=== PATIENT | female | born 1995 | race Hispanic/Latino ===

== ENCOUNTER 2025-05-05 18:57 | Day surgery (SDC) | payer OTHER ==
[2025-05-05 19:35] VITALS: BMI 37.0
[2025-05-05] MEDS ORDERED: Acetaminophen 500 MG TAB PO PRN (19:37)
[2025-05-05] MEDS ORDERED: hydrALAZINE 20 MG/ML VIAL SLOW IVP PRN (19:37)
== END 2025-05-05 20:00 | disposition other institution (70) ==
LOC: CSHLD/OP 18:57
PROVIDERS: ATTEND Obstetrics & Gynecology
DX: O99.619 Diseases of the digestive system complicating pregnancy, unspecified trimester (principal); K08.89 Other specified disorders of teeth and supporting structures; Z3A.00 Weeks of gestation of pregnancy not specified
CPT/HCPCS: 99284

== ENCOUNTER 2025-05-05 20:01 | Emergency (ER) | payer OTHER | END 2025-05-05 20:23 | disposition home or self-care (01) | LOC: CSHERS 20:01 | DX: O99.891 Other specified diseases and conditions complicating pregnancy (principal); K08.89 Other specified disorders of teeth and supporting structures; K02.9 Dental caries, unspecified; Z3A.28 28 weeks gestation of pregnancy | CPT/HCPCS: 99282 ==

== ENCOUNTER 2025-05-11 16:39 | Day surgery (SDC) | payer OTHER ==
[2025-05-11 16:50] VITALS: BMI 37.7
[2025-05-11] MEDS ORDERED: hydrALAZINE 20 MG/ML VIAL SLOW IVP PRN (17:12)
[2025-05-11 18:45] LABS: Protein, Urine Random Quant Less than 10 mg/dL (1-14)
[2025-05-11 19:06] LABS: #Basophils Less than 0.03 10x3/uL (0.0-0.2); #Eosinophils 0.10 10x3/uL (0.0-0.5); #Monocytes 0.50 10x3/uL (0.0-1.1); #Neutrophils 6.45 10x3/uL (1.5-8.4); %Basophils 0.2 % (0.0-2.0); %Eosinophils 1.1 % (0.0-6.0); %Lymphocytes 21.9 % (18.0-47.0); %Monocytes 5.5 % (0.0-10.0); %Neutrophils 70.5 % (40.0-75.0); Hematocrit 32.7 % (34.9-44.5); Hemoglobin 11.0 g/dL (12.0-15.5); Mean Corpuscular Hemoglobin 30.2 pg (27.0-33.0); Mean Corpuscular Volume 89.8 fL (81.6-98.3); Platelet Count 207 10x3/uL (150-450); Red Blood Cell (RBC) Count 3.64 10x6/uL (3.90-5.03); White Blood Cell (WBC) Count 9.14 10x3/uL (3.5-10.5)
[2025-05-11 19:17] LABS: ALT (SGPT) 30 U/L (Less than 34); AST (SGOT) 24 U/L (11-34); Albumin 2.6 g/dL (3.1-4.5); Alkaline Phosphatase 111 U/L (40-110); Anion Gap 11 mmol/L (10-20); BUN (Urea Nitrogen) 9 mg/dL (7.0-18.7); Bilirubin, Total 0.2 mg/dL (0.3-1.2); Calc. Creatinine Clearance 201 mL/min (70-130); Calcium 9.2 mg/dL (7.8-10.44); Carbon Dioxide 20 mmol/L (22-29); Chloride 110 mmol/L (98-107); Globulin 4.0 g/dL (2.4-3.5); Glucose 84 mg/dL (70-105); Potassium 4.3 mmol/L (3.5-5.1); Sodium 137 mmol/L (136-145)
== END 2025-05-11 20:00 | disposition home or self-care (01) ==
LOC: EEVIPCON 16:39 → CSHLD/OP 16:39
PROVIDERS: ATTEND Obstetrics & Gynecology
DX: O99.891 Other specified diseases and conditions complicating pregnancy (principal); R03.0 Elevated blood-pressure reading, without diagnosis of hypertension; Z3A.31 31 weeks gestation of pregnancy; Z87.59 Personal history of other complications of pregnancy, childbirth and the puerperium; Z79.899 Other long term (current) drug therapy
CPT/HCPCS: 36415; 80053; 82570; 84156; 85025; 99284

== ENCOUNTER 2025-05-17 10:25 | Day surgery (SDC) | payer OTHER ==
[2025-05-17] MEDS ORDERED: hydrALAZINE 20 MG/ML VIAL SLOW IVP PRN (12:16)
== END 2025-05-17 12:49 ==
LOC: EEVIPCON 10:25 → CSHLD/OP 10:25
PROVIDERS: ATTEND Obstetrics & Gynecology
DX: O99.891 Other specified diseases and conditions complicating pregnancy (principal); R03.0 Elevated blood-pressure reading, without diagnosis of hypertension; O34.211 Maternal care for low transverse scar from previous cesarean delivery; Z3A.32 32 weeks gestation of pregnancy; Z79.899 Other long term (current) drug therapy
CPT/HCPCS: 36416; 99283